=== PATIENT | male | born 1995 | race Caucasian/White ===

== ENCOUNTER 2017-02-08 21:21 | Emergency (ER) | payer SELFPAY ==
[2017-02-08 22:14] LABS: Hematocrit 43 % (42-52); Hemoglobin 14.6 g/dl (14.0-18.0); Mean Corpuscular HGB Conc 34 g/dl (31-36); Mean Corpuscular Hemoglobin 31 pg (27-31); Mean Corpuscular Volume 90 fL (80-94); Mean Platelet Volume 8 um3 (7.4-10.4); Red Blood Count 4.74 10^6/ul (4.0-5.4); Red Cell Distribution Width 14 % (10.5-15); White Blood Count 11.6 10^3/ul (3.5-10.8)
[2017-02-08 22:25] LABS: Albumin 4.6 g/dL (3.2-5.2); BUN/Creatinine Ratio 14.3 (8-20); Calcium 9.5 mg/dL (8.6-10.3); EGFR Non-African American 107.3 (>60); Globulin 3.5 g/dL (2-4); Potassium 3.9 mmol/L (3.5-5.0); Total Bilirubin 0.6 mg/dL (0.2-1.0); Total Protein 8.1 g/dL (6.4-8.9)
[2017-02-08] MEDS ORDERED: Iohexol 300* (CONTRAST) 10 ML SDV IV ONE (22:32)
[2017-02-09] MEDS ORDERED: Ibuprofen TAB* 400 MG PO ONE (00:46)
[2017-02-09 01:26] VITALS: BP 108/64
--- NOTE | 2017-02-09 08:00 | RAD ---
Indication: Fall, head injury. CT of the brain was performed without IV contrast. Ventricular structures are midline. No midline shift is noted. The extra-axial spaces are unremarkable. There is no evidence of intracranial mass or hemorrhage. No other high or low density lesions are identified. Mastoid air cells and paranasal sinuses are unremarkable. There may be some mild ethmoid sinusitis involving the left anterior ethmoid air cells. IMPRESSION: No intracranial mass or hemorrhage is noted. Left ethmoid sinusitis.
--- NOTE | 2017-02-09 08:02 | RAD ---
Indication: Neck injury after fall. CT of the cervical spine was obtained in the axial plane. Sagittal and coronal reconstructed images were obtained. The skull base demonstrates no evidence of fracture. Mastoid air cells are unremarkable. The vertebral bodies appear normal in height and alignment. Spinal canal is intact. No evidence of fracture of the cervical spine is noted. No focal protrusion is noted. The lung apices are unremarkable. No evidence of facet malalignment is noted. IMPRESSION: NO FRACTURE OF THE CERVICAL SPINE IS NOTED.
--- NOTE | 2017-02-09 08:06 | RAD ---
Indication: Substernal chest pain. Contrast: Administered 80.3 ml of OMNIPAQUE 300 mg/ml CT of the chest was performed after IV contrast administration. Coronal and sagittal reconstructed images were obtained. Inferior thyroid lobes are unremarkable. No mediastinal or hilar adenopathy is noted. The heart demonstrates no evidence of pericardial effusion. No evidence of aortic injury is noted. No paramediastinal hematoma is noted. The trachea and major bronchi appear patent. No evidence of pneumothorax is noted. There is a small area of groundglass opacity in the left base measuring 5 mm. Reference image 51. This may represent a focal area of atelectasis. No pleural fluid is identified. The sternum demonstrates no evidence of fracture. The clavicles are intact. No definite rib fractures are noted. IMPRESSION: NO PNEUMOTHORAX IS NOTED. NO DEFINITE RIB FRACTURE OR STERNAL FRACTURE IS NOTED. TINY 5 MM GROUNDGLASS OPACITY IN THE LEFT BASE IS NOTED WHICH MAY REPRESENT SOME ATELECTASIS OR EARLY INFILTRATE. FOLLOW-UP EXAM CLINICALLY INDICATED IS SUGGESTED.
--- NOTE | 2017-02-09 09:19 | RAD ---
Indication: Left shoulder pain. 3 views of left shoulder demonstrates no fracture. No other bone or joint abnormality is noted. IMPRESSION: No fracture of the left shoulder is noted.
--- NOTE | 2017-02-10 09:19 | ED ---
Raza Bhagat Aidan, scribed for Ron Raygoza MD on 02/08/17 at 2157 . Complex/Multi-Sys Presentation - HPI Summary HPI Summary: 21 y/o male presents to the ED with a complaint of acute, constant, mild-to- moderate (3/10) ribcage, back, and neck pain that began after falling approximately 10 feet off of a deck several hours ago. During the fall, he hit his head and lost consciousness for less than a minute. Just after regaining consciousness, he was ambulatory. Inhalation aggravates his ribcage pain. Before the fall, he had roughly 6-7 drinks. He does not recall any blurry vision. - History Of Current Complaint Chief Complaint: EDTraumaMultiple Hx Obtained From: Patient, Family/Vp Legal Affairs - friend Onset/Duration: Sudden Onset, Lasting Hours, Still Present Timing: Constant, Hours Severity Currently: Moderate Severity Initially: Moderate Location: Pain At: - ribs, neck, back Character: Sharp Aggravating Factor(s): inhalation Alleviating Factor(s): unknown Associated Signs And Symptoms: Positive: Other - LOC for less than a minute, mild intoxication - Allergies/Home Medications Allergies/Adverse Reactions: Allergies Allergy/AdvReac Type Severity Reaction Status Date / Time No Known Allergies Allergy Verified 02/08/17 21:29 PMH/Surg Hx/FS Hx/Imm Hx - Immunization History Date of Tetanus Vaccine: utd Date of Influenza Vaccine: utd Infectious Disease History: No Infectious Disease History: Denies: Traveled Outside the [place] in Last 30 Days - Family History Known Family History: Positive: Hypertension - Social History Occupation: Student Lives: Alone Alcohol Use: Weekly Alcohol Amount: 4 days/week, 6 avg. Substance Use Type: Reports: Marijuana Substance Use Comment - Amount & Last Used: cocaine - not for a couple of weeks , daily for marijuana Smoking Status (MU): Smoker, Current Status Unknown Review of Systems Negative: Fever, Chills, Fatigue, Skin Diaphoresis Negative: Photophobia, Diplopia, Drainage, Erythema Negative: Epistaxis, Dental Pain, Sore Throat, Ear Ache, Nasal Discharge Negative: Palpitations, Chest Pain Negative: Shortness Of Breath, Cough Negative: Abdominal Pain, Vomiting, Diarrhea, Nausea Negative: burning, dysuria, discharge, frequency, flank pain, hematuria, incontinence, pain, urgency Positive: Arthralgia - neck, back, rib pain. Negative: Decreased ROM, Edema Negative: Rash, Bruising Neurological: Other - LOC for less than a minute Negative: Weakness, Paresthesia, Numbness, Syncope, Slurred Speech Negative: Anxious, Depressed All Other Systems Reviewed And Are Negative: Yes Physical Exam - Summary Physical Exam Summary: Constitutional: Well-developed, Well-nourished, Alert, Cooperative Skin: Warm, Dry HENT: Normocephalic; No Racoons eyes; No battles sign; No abrasion; No contusion ; No hemotympanum; No maxilla facial tenderness or instability; Dentition are smooth; No dental trauma; No trismus Eyes: EOM normal, PERRL Neck: Trachea is midline. No stridor; No JVD; No step off; No posterior cervical spine tenderness Cardio: Rhythm regular, rate normal Heart sounds normal; Intact distal pulses; The pedal pulses are 2+ and symmetric. Radial pulses are 2+ and symmetric. Pulmonary/Chest wall: Effort normal; Breath sounds normal; Equal chest rise; No flail segment; No rib tenderness; No sternal tenderness Abd: Soft, Appearance normal. No distension; No tenderness; No palpable pulsatile mass; No Cullens sign; No Freire-Turners sign Musculoskeletal: Full ROM and no tenderness at hips, ankles, shoulders, elbows and knees; No joint swelling; No paraspinal tenderness; No step off or deformity of the spine; Pelvis is stable to lateral compression and rock Neuro: Alert, Oriented x3, Strength 5/5 all extremities. : No blood at urethral meatus Psych: Mood and affect Normal TENDER AT MID-STERNUM MILD TENDERNESS OVER ANTERIOR SHOULDER LEFT SIDE Vital Signs On Initial Exam: Initial Vitals Temp Pulse Resp BP Pulse Ox 98.3 F 85 16 117/51 100 02/08/17 21:26 02/08/17 21:26 02/08/17 21:26 02/08/17 21:26 02/08/17 21:26 - [place] Coma Scale Coma Scale Total: 15 Diagnostics - Vital Signs Vital Signs Temp Pulse Resp BP Pulse Ox 02/08/17 21:26 98.3 F 85 16 117/51 100 - Laboratory Result Diagrams: 02/08/17 21:45 02/08/17 21:45 Lab Statement: Any lab studies that have been ordered have been reviewed, and results considered in the medical decision making process. - CT CHEST CT CT Interpretation: Positive (See Comments) - IMPRESSION: 1. THERE IS NO DEFINITE ACUTE FRACTURE OR DISLOCATION APPRECIATED. 2. THERE IS A 5mm IRREGULAR DENSITY INVOLVING THE LEFT LOWER LOBE COLLAPSE WITH 5l, POSSIBLY SUBSEGMENTAL ATELECTASIS OR AN IRREGULAR NODULE. CT Interpretation Completed By: Radiologist - HOG COUNTER BRAIN CT CT Interpretation: Positive (See Comments) - IMPRESSION: 1. NO DEFINITIVE EVIDENCE OF ACUTE INTRACRANIAL HEMORRHAGE, INTRACRANIAL MASS EFFECT, HYDROCEPHALUS, OR DEPRESSED CALVARIAL FRACTURE IS APPRICIATED. 2. THERE IS EVIDENCE OF MILD LEFT ETHMOID AIR CELL SINUSITIS. CT Interpretation Completed By: Radiologist - HOG COUNTER CT CERVICAL SPINE CT Interpretation: No Acute Changes - IMPRESSION: NO ACUTE FRACTURE OR MALALIGNMENT. CT Interpretation Completed By: Radiologist - HOG COUNTER Re-Evaluation - Re-Evaluation First Eval Re-Evaluation Time: 00:31 - The patient is feeling better. Change: Improved Second Eval Re-Evaluation Time: 00:46 - The patient is now complaining of left-sided shoulder pain. He will be given an x-ray. Change: Worse Complex Multi-Symp Course/Dx Course Of Treatment: On second re-evaluation, the patient complainted of left- sided shoulder pain. He will be given an x-ray. - Diagnoses Differential Diagnoses/HQI/PQRI: Sepsis Provider Diagnoses: Alcohol intoxication, Pulmonary nodule, Fall from height of greater than 3 feet , Cervical strain, Chest wall contusion Discharge - Discharge Plan Condition: Stable Disposition: HOME Patient Education Materials: Cervical Strain (ED), Pulmonary Nodules (ED), Alcohol Intoxication (ED) Forms: *School Release Referrals: Maricruz [facility] MARICRUZ Loza [Primary Care Provider] - Additional Instructions: Please follow up with Maricruz in 2-3 days and follow upo with Maricruz about Chest CT findings. The documentation as recorded by the Raza prescott Aidan accurately reflects the service I personally performed and the decisions made by me, Ron Raygoza MD.
== END 2017-02-09 01:26 | disposition home or self-care (01) ==
LOC: ED 21:21
DX: S20.219A Contusion of unspecified front wall of thorax, initial encounter (principal); F10.129 Alcohol abuse with intoxication, unspecified; R91.1 Solitary pulmonary nodule; S16.1XXA Strain of muscle, fascia and tendon at neck level, initial encounter; W19.XXXA Unspecified fall, initial encounter; Y93.9 Activity, unspecified; Y92.9 Unspecified place or not applicable
CPT/HCPCS: 36415; 70450; 71260; 72125; 80053; 80320; 83605; 85025; 99282; G0480; Q9967